=== PATIENT | male | born 1945 | race Caucasian/White ===

== ENCOUNTER → 2019-02-18 | Outpatient (CLI) | payer OTHER ==
[~2019-02-18] MED LIST: REGADENOSON 0.4 MG/5 ML DISP.SYRIN. IV ONE
--- NOTE | 2019-02-18 12:54 | PCVCIMAG ---
APPROVED REPORT Imaging Protocol: Rest Tc-99m/Stress Tc-99m 1 day Study performed: 02/18/2019 09:01:53 Indication: Recent pacemaker for complete heart block Patient Location: Out-Patient Stress Nurse: Guillermina Duncan RN [place] Tech:Tracy Diaz [facility] Ht: 5 ft 6 in Wt: 165 lbs BSA: 1.84 m2 HR: 67 bpm BP: 173/82 mmHg BMI: 26.62 Rhythm: Paced Medical History Medical History: Hyperlipidemia, Diabetes Medications: Zocor Allergies: Prednisone Cardiac Risk Factors: Age Previous Cardiac Procedures: 01/14/2019 Pacemaker Pretest Chest Pain Characteristics: No chest pain Exercise History: Indeterminate Resting Data Rest SPECT myocardial perfusion imaging was performed in supine position 45 minutes following the intravenous injection of 10 mCi of Tc-99m Sestamibi. Time of rest injection: 0900 Date: 02/18/2019 Administration Route: IV Administration Site: Right Hand Pharmacologic Stress Pharmacologic stress test was performed by injecting Regadenoson 0.4 mg IV push over 10-15 seconds immediately followed by the intravenous injection of 33.9 mCi of Tc-99m Sestamibi. Time of stress injection: 1030 Date: 02/18/2019 Administration Route: IV Administration Site: Right Hand Gated Stress SPECT was performed 45 minutes after stress injection. The images were gated to evaluate regional wall motion and calculate left ventricular ejection fraction. Stress Test Details Stress Test: Pharmacologic stress testing performed using 0.4 mg of regadenoson per 5 mL given IV over 10 seconds. Reason for pharmacologic stress test: physical limitation. HRMax Heart Rate (APMHR): 147 bpm Resting HR: 67 bpmTarget HR (85% APMHR): 124 bpm Max HR Achieved: 92 bpm % of APMHR: 62 Recovery HR: 86 bpm BP Resting BP: 173/82 mmHg Max BP: 158/81 mmHg Recovery BP: 147/68 mmHg ECG Resting ECG: Paced Stress ECG: Paced ST Change: Nondiagnostic V-pacing Arrhythmia: None Recovery ECG: Paced Clinical Reason for Termination: Completed protocol Stress Symptoms: Chest pressure, Lightheaded Symptoms resolved with caffeine. Study Quality Study: Good Artifact: Mild Diaphragmatic artifact Study Data SSS: 6 SRS: 12 SDS: 0 TID = 0.99. Perfusion There is a small area of mildly reduced uptake in the basal segment of the inferior wall which is seen on the stress images as well as the resting images. This area thickens and moves normally and is most consistent with attenuation artifact. Wall Motion Paradoxical septal motion due to pacing from the right ventricle. Nuclear Conclusion ECG Findings: non-diagnostic Clinical Findings: non-diagnostic Nuclear Findings: negative for ischemia Exercise Capacity: not assessed This study is of low probability for inducible ischemia or prior infarct. Artifact: Mild Diaphragmatic artifact The computer generated ejection fraction is 38%, appears to be falsely low.
== END | disposition home or self-care (01) ==
LOC: PCVCIMAG 09:00
PROVIDERS: ATTEND Internal Medicine Cardiovascular Disease
DX: I44.2 Atrioventricular block, complete (principal); R07.9 Chest pain, unspecified; E78.00 Pure hypercholesterolemia, unspecified; K21.9 Gastro-esophageal reflux disease without esophagitis; E78.5 Hyperlipidemia, unspecified; R06.02 Shortness of breath; Z88.8 Allergy status to other drugs, medicaments and biological substances; Z79.899 Other long term (current) drug therapy; Z79.82 Long term (current) use of aspirin; Z87.891 Personal history of nicotine dependence; Z95.0 Presence of cardiac pacemaker
CPT/HCPCS: 78452; 93017; A9500; J2785

== ENCOUNTER → 2019-03-11 | Outpatient (CLI) | payer OTHER ==
--- NOTE | 2019-03-11 11:41 | PCVCIMAG ---
APPROVED REPORT Study performed: 03/11/2019 10:51:29 EXAM: Comprehensive 2D, Doppler, and color-flow Echocardiogram Patient Location: Echo lab Status: routine BSA: 1.85 HR: 64 bpmBP: 150/72 mmHg Rhythm: Pacemaker Other Information Study Quality: Adequate Risk Factors: Cardiac Risk Factors: DM Indications Dyspnea Pacemaker decreased EF on nuclear stress test 2D Dimensions IVSd: 12.42 (7-11mm) LVDd: 46.04 mm PWd: 12.29 (7-11mm)Ascending Ao: 32.71 (22-36mm) LVDs: 38.30 (25-40mm) Left Atrium: 30.98 (27-40mm) Aortic Root: 35.34 mm LV Single Plane 4CH: 43.33 % LV Single Plane 2CH: 46.42 % Biplane EF: 43.5 % Volumes Left Atrial Volume (Systole) Single Plane 4CH: 56.14 mLSingle Plane 2CH: 84.70 mL LA ESV Index: 38.00 mL/m2 Aortic Valve AoV Peak Reynaldo.: 1.22 m/s AO Peak Gr.: 5.93 mmHgLVOT Max P.47 mmHg LVOT Max V: 0.93 m/s Mitral Valve E/A Ratio: 0.7 MV Decel. Time: 269.44 ms MV E Max Reynaldo.: 0.53 m/s MV A Reynaldo.: 0.79 m/s IVRT: 183.39 ms Pulmonary Valve PV Peak Reynaldo.: 1.07 m/sPV Peak Gr.: 4.57 mmHg Pulmonary Vein P Vein S: 0.20 m/sP Vein A: 0.31 m/s P Vein D: 0.26 m/sP Vein A Dur.: 148.8 msec P Vein S/D Ratio: 0.77 Tricuspid Valve TR Peak Reynaldo.: 2.31 m/s TR Peak Gr.: 21.33 mmHg TV Vmax: 0.42 m/s Left Ventricle The left ventricle is normal size. There is normal LV segmental wall motion. Paradoxical septal motion consistent with paced rhythm. Mild concentric left ventricular hypertrophy. Left ventricular systolic function is mildly decreased. LVEF is 45%. Grade I - abnormal relaxation pattern. Right Ventricle The right ventricle is normal size. The right ventricular systolic function is normal. Pacemaker lead is present in the right ventricle. Atria Left atrium is mildly dilated. The right atrium size is normal. Pacemaker lead is present in the right atrium. Aortic Valve The aortic valve is normal in structure. Trace aortic regurgitation. There is no aortic valvular stenosis. Mitral Valve The mitral valve is normal in structure. Mild mitral regurgitation. No evidence of mitral valve stenosis. Tricuspid Valve The tricuspid valve is normal in structure. Trace tricuspid regurgitation with PAP of 28 mmHg. Pulmonic Valve The pulmonary valve is normal in structure. Trace pulmonic regurgitation. Great Vessels The aortic root is normal in size. IVC is normal in size and collapses >50% with inspiration. Pericardium There is no pericardial effusion. There is no pleural effusion. <Conclusion> The left ventricle is normal size. Mild concentric left ventricular hypertrophy. Left ventricular systolic function is mildly decreased. LVEF is 45%. Paradoxical septal motion consistent with paced rhythm. The right ventricle is normal size. Left atrium is mildly dilated. Trace aortic regurgitation. Mild mitral regurgitation. Trace tricuspid regurgitation with PAP of 28 mmHg.
== END | disposition home or self-care (01) ==
LOC: PCVCIMAG 10:51
PROVIDERS: ATTEND Internal Medicine Cardiovascular Disease
DX: I11.9 Hypertensive heart disease without heart failure (principal); I34.0 Nonrheumatic mitral (valve) insufficiency; I44.2 Atrioventricular block, complete; K21.9 Gastro-esophageal reflux disease without esophagitis; E11.9 Type 2 diabetes mellitus without complications; E78.5 Hyperlipidemia, unspecified; I45.5 Other specified heart block; E78.00 Pure hypercholesterolemia, unspecified; Z79.82 Long term (current) use of aspirin; Z79.899 Other long term (current) drug therapy; Z95.0 Presence of cardiac pacemaker; Z87.891 Personal history of nicotine dependence; Z82.49 Family history of ischemic heart disease and other diseases of the circulatory system; Z79.84 Long term (current) use of oral hypoglycemic drugs; Z90.49 Acquired absence of other specified parts of digestive tract; Z88.8 Allergy status to other drugs, medicaments and biological substances
CPT/HCPCS: 93306

== ENCOUNTER → 2019-03-24 | Outpatient (CLI) | payer OTHER | END | disposition home or self-care (01) | LOC: PCVCCLINIC 15:52 | PROVIDERS: ATTEND Internal Medicine Cardiovascular Disease | DX: E78.00 Pure hypercholesterolemia, unspecified (principal); I10 Essential (primary) hypertension; I42.9 Cardiomyopathy, unspecified; K21.9 Gastro-esophageal reflux disease without esophagitis; E11.9 Type 2 diabetes mellitus without complications; E78.5 Hyperlipidemia, unspecified; Z90.49 Acquired absence of other specified parts of digestive tract; Z82.49 Family history of ischemic heart disease and other diseases of the circulatory system; Z87.891 Personal history of nicotine dependence; Z95.0 Presence of cardiac pacemaker; Z79.82 Long term (current) use of aspirin; Z79.899 Other long term (current) drug therapy; Z88.8 Allergy status to other drugs, medicaments and biological substances | CPT/HCPCS: 36415 ==